=== PATIENT | female | born 1995 | race Native Hawaiian/Other Pacific Islander ===

== ENCOUNTER 2018-10-11 11:42 | Outpatient (CLI) | payer OTHER ==
[2018-10-11 12:50] LABS: PLATELET COUNT 297 K/uL (152-353)
[2018-10-11 13:20] LABS: POTASSIUM 3.8 mmol/L (3.6-5.2)
== END 2018-10-11 22:23 | disposition home or self-care (01) ==
LOC: LAB 11:42
PROVIDERS: Internal Medicine
DX: R53.83 Other fatigue (principal)
CPT/HCPCS: 36415; 80053; 81025; 83540; 84439; 84443; 85027; 86308; 86663; 86665; 87497

== ENCOUNTER 2022-06-23 10:45 | Outpatient (CLI) | payer OTHER | END 2022-06-23 20:31 | disposition home or self-care (01) | LOC: RAD 10:45 | PROVIDERS: ATTEND Nurse Practitioner Family | DX: E55.9 Vitamin D deficiency, unspecified (principal); M06.4 Inflammatory polyarthropathy; M62.81 Muscle weakness (generalized); M79.671 Pain in right foot; M79.672 Pain in left foot ==

== ENCOUNTER 2022-10-26 08:25 | Outpatient (CLI) | payer OTHER | END 2022-10-26 19:32 | disposition home or self-care (01) | LOC: CT 08:25 | PROVIDERS: ATTEND Physician Assistant | DX: R55 Syncope and collapse (principal) ==